=== PATIENT | female | born 1960 | race Caucasian/White ===

== ENCOUNTER → 2020-08-15 | Outpatient (CLI) | payer OTHER ==
[~2020-08-15] MED LIST: GADOTERATE 10 MMOL/20 ML VIAL ONE
== END | disposition home or self-care (01) ==
LOC: CFH 10:32
PROVIDERS: ATTEND Surgery
DX: C50.411 Malignant neoplasm of upper-outer quadrant of right female breast (principal)
CPT/HCPCS: 77049; A9575; C8908

== ENCOUNTER 2020-08-27 14:48 | Outpatient (CLI) | payer OTHER ==
[~2020-08-27 14:48] MED LIST changes: +ASPI81TA45 PO; +CYAN100014 PO; +FLEC50TA25 PO; -GADOTERATE 10 MMOL/20 ML VIAL ONE; +GING250C PO; +LACT1CAP40 PO; +TRYP500C PO; +[UNRECOGNIZED DRUG - OTHER] PO; +[UNRECOGNIZED DRUG - OTHER] PO
== END 2020-08-27 23:59 | disposition home or self-care (01) ==
LOC: RAD 14:48
PROVIDERS: ATTEND Surgery
DX: C50.411 Malignant neoplasm of upper-outer quadrant of right female breast (principal)
CPT/HCPCS: 38792; A9541

== ENCOUNTER 2020-08-28 05:22 | Day surgery (SDC) | payer OTHER ==
[2020-08-26 12:10] LABS: BASOPHILS % (AUTO) 1 % (0-1); EOSINOPHILS % (AUTO) 3 % (1-7); LYMPHOCYTES % (AUTO) 28 % (22-44); MD NO; MEAN CORPUSCULAR HEMOGLOBIN 30.1 pg (27.0-34.8); MEAN CORPUSCULAR HGB CONC 33.9 g/dL (32.4-35.8); MEAN PLATELET VOLUME 9.5 fL (7.4-10.4); MONOCYTES % (AUTO) 8 % (2-9); NEUTROPHILS % (AUTO) 60 % (42-75); PLATELET COUNT 311 x10^3/uL (130-400); RED CELL DISTRIBUTION WIDTH 13.3 % (9.6-15.2)
[~2020-08-28] VITALS: Ht 165.1 cm; Wt 87.4 kg
[2020-08-28] MEDS ORDERED: CHLORHEXIDINE 15 ML UDC PO ONE (06:00)
[2020-08-28] MEDS ORDERED: LACTATED RINGERS 1,000 ML IV SCH (06:00)
[2020-08-28 06:01] VITALS: BP 123/72
[2020-08-28] MEDS ORDERED: BUPIVACAINE/PF 0.5% ONE (06:34)
[2020-08-28] MEDS ORDERED: ISOSULFAN BLUE 10 MG/ML, 5ML IV ONE (06:34)
[2020-08-28] MEDS ORDERED: GENTAMICIN 80 MG/2 ML ONE (06:34)
[2020-08-28] MEDS ORDERED: CEFAZOLIN 1,000 MG ONE ×2 (06:34→07:31)
[2020-08-28] MEDS ORDERED: EPINEPHRINE 1 MG/ML, 1ML ONE (06:35)
[2020-08-28] MEDS ORDERED: BACITRACIN 50,000 UNIT ONE (06:35)
[2020-08-28] MEDS ORDERED: FENTANYL PF 100 MCG/2ML ONE ×3 (06:39→10:11)
[2020-08-28] MEDS ORDERED: MIDAZOLAM 1 MG/ML, 2ML ONE (06:39)
[2020-08-28] MEDS ORDERED: LIDOCAINE-MPF 2% ,5ML ONE (06:57)
[2020-08-28] MEDS ORDERED: ONDANSETRON 2MG/ML, 2ML IVPush PRN (07:00)
[2020-08-28] MEDS ORDERED: PROMETHAZINE 25 MG/ML, 1ML IVPush PRN (07:00)
[2020-08-28] MEDS ORDERED: hydrALAzine 20 MG/ML, 1ML IV PRN (07:00)
[2020-08-28] MEDS ORDERED: LABETALOL 5MG/ML, 20ML IV PRN (07:00)
[2020-08-28] MEDS ORDERED: ACETAMINOPHEN 325 MG TABLET PO PRN (07:00)
[2020-08-28] MEDS ORDERED: HYDROmorphone 1 MG/ML, 1ML INJ IVPush PRN (07:00)
[2020-08-28] MEDS ORDERED: EPHEDRINE 50 MG/ML, 1ML IVPush PRN (07:00)
[2020-08-28] MEDS ORDERED: DEXAMETHASONE 4 MG/ML, 5ML ONE (07:25)
[2020-08-28] MEDS ORDERED: KETOROLAC 30 MG/1 ML ONE (07:26)
[2020-08-28] MEDS ORDERED: EPHEDRINE 50 MG/ML, 1ML ONE (07:29)
[2020-08-28] MEDS ORDERED: SUCCINYLCHOLINE 20 MG/ML, 10ML ONE (07:31)
[2020-08-28] MEDS ORDERED: PROPOFOL 10 MG/ML, 20ML ONE (07:31)
[2020-08-28] MEDS ORDERED: ONDANSETRON 2MG/ML, 2ML ONE (07:31)
[2020-08-28] MEDS ORDERED: HYDROmorphone 1 MG/ML, 1ML INJ ONE (07:50)
[2020-08-28] MEDS ORDERED: ACETAMINOPHEN 650 MG/20.3 ML UDC ONE (10:11)
[2020-08-28] MEDS: OXYcodone 5 MG/5 ML ORAL.SOL UDC PO PRN ×2 (10:12→13:57)
[2020-08-28] MEDS ORDERED: OXYcodone 5 MG/5 ML ORAL.SOL UDC ONE (10:12)
[2020-08-28] MEDS: FENTANYL PF 100 MCG/2ML IV PRN ×2 (10:22→10:27)
== END 2020-08-28 12:37 | disposition home or self-care (01) ==
LOC: OUT 05:22
PROVIDERS: ATTEND Surgery
DX: C50.411 Malignant neoplasm of upper-outer quadrant of right female breast (principal); C77.3 Secondary and unspecified malignant neoplasm of axilla and upper limb lymph nodes; N60.41 Mammary duct ectasia of right breast; N65.1 Disproportion of reconstructed breast; I48.91 Unspecified atrial fibrillation; E66.9 Obesity, unspecified; Z17.0 Estrogen receptor positive status [ER+]; Z68.31 Body mass index [BMI] 31.0-31.9, adult; Z20.822 Contact with and (suspected) exposure to COVID-19; Z79.82 Long term (current) use of aspirin; Z79.899 Other long term (current) drug therapy; Z85.3 Personal history of malignant neoplasm of breast; Z88.2 Allergy status to sulfonamides; Z90.12 Acquired absence of left breast and nipple; Z92.3 Personal history of irradiation; Z82.49 Family history of ischemic heart disease and other diseases of the circulatory system
CPT/HCPCS: 15570; 19301; 19318; 36415; 38525; 76098; 85025; 88305; 88307; 88329; 88333; 93005; C1729; J0171; J0330; J0690; J1100; J1170; J1885; J2250; J2405; J2704; J3010; J7120; U0003; J1580